=== PATIENT | male | born 1965 | race Caucasian/White ===

== ENCOUNTER 2018-01-23 19:35 | Emergency (ER) | payer SELFPAY ==
[~2018-01-23] VITALS: Ht 182.9 cm; Wt 81.0 kg
[2018-01-23] MEDS ORDERED: OXYCODONE HCL/ACETAMINOPHEN 5/325MG TABLET PO ONE (20:00)
[2018-01-23 21:29] VITALS: BP 133/79
== END 2018-01-23 21:30 | disposition home or self-care (01) ==
LOC: ER 20:26
DX: S82.62XA Displaced fracture of lateral malleolus of left fibula, initial encounter for closed fracture (principal); W17.89XA Other fall from one level to another, initial encounter; Y93.89 Activity, other specified; Y92.89 Other specified places as the place of occurrence of the external cause; Y99.8 Other external cause status
CPT/HCPCS: 29515; 73590; 73610; 99284; Z7610